=== PATIENT | male | born 1985 | race Two or more races ===

== ENCOUNTER 2020-02-20 23:53 | Emergency (ER) | payer MEDICAID ==
[~2020-02-20] VITALS: Ht 182.9 cm; Wt 77.1 kg
--- NOTE | 2020-02-20 23:58 | NUR ---
PT AAOX4, AMBULATORY WITH STEADY GAIT. BIBMOTHER C/O HEADACHE. PER MOTHER THE PT IS NOT TAKING PRESCRIBED MEDS. PLACED ON MONITOR AND PULSE OX. VSS. NO ACUTE DISTRESS NOTED. WILL CONTINUE TO MONITOR.
[2020-02-20 23:59] VITALS: BP 127/79
[2020-02-21] MEDS ORDERED: OLANZAPINE 5 MG TABLET PO ONE
[2020-02-21 00:06] LABS: BASOPHILS # (AUTO) 0.1 /CMM (0.0-0.2); BASOPHILS % (AUTO) 0.7 % (0.0-2.0); EOSINOPHILS % (AUTO) 0.7 % (0.0-6.0); HEMATOCRIT 46 % (39-51); HEMOGLOBIN 15.5 g/dL (13.5-17.5); MEAN CORPUSCULAR HGB CONC 34 g/dl (31.0-36.0); MEAN CORPUSCULAR VOLUME 91 fL (80-96); MONOCYTES # (AUTO) 0.7 /CMM (0.1-1.30); NEUTROPHILS # (AUTO) 7.1 /CMM (1.8-8.9); NEUTROPHILS % (AUTO) 71.6 % (43.0-81.0); PLATELET COUNT (AUTO) 313 /CMM (150-450); RED BLOOD CELL COUNT(AUTO) 5.06 MIL/uL (4.5-6.0)
[2020-02-21] MEDS ORDERED: OLANZAPINE 5 MG TABLET ONE (00:06)
--- NOTE | 2020-02-21 00:07 | NUR ---
PT REFUSED MD SHIKHA AWARE
[2020-02-21 00:17] LABS: CALCIUM, SERUM 8.9 mg/dL (8.5-10.1); CARBON DIOXIDE 26 mmol/L (21-32); CHLORIDE 103 mmol/L (98-107); GLUCOSE 107 mg/dL (74-106); POTASSIUM 4.1 mmol/L (3.5-5.1); SODIUM SERUM 140 mmol/L (136-145); UREA NITROGEN, BLOOD 15 mg/dL (7-18)
--- NOTE | 2020-02-21 00:21 | NUR ---
REMIGIO (MOTHER) CONTACT INFORMATION: [phone]
[2020-02-21 00:22] LABS: ALANINE AMINOTRANSFERASE 39 U/L (12-78); ALCOHOL, BLOOD < 3 mg/dL (0-0); ALKALINE PHOSPHATASE 75 U/L (46-116); ASPARTATE AMINOTRANSFERASE 19 U/L (15-37); BILIRUBIN,DIRECT 0.1 mg/dL (0.0-0.2); BILIRUBIN,TOTAL 0.5 mg/dL (0.2-1.0); TOTAL PROTEIN, SERUM 7.8 g/dL (6.4-8.2)
[2020-02-21 00:23] LABS: APPEARANCE,URINE Clear (CLEAR); BILIRUBIN,URINE SMALL (NEGATIVE); BLOOD, URINE Negative Ery/uL (NEGATIVE); COLOR,URINE Yellow (YELLOW); KETONES,URINE 15 (NEGATIVE); LEUKOCYTE ESTERASE ,URINE Negative (NEGATIVE); NITRITE, URINE Negative (NEGATIVE); PH,URINE 5.5 (5.0-8.0); PROTEIN,URINE Negative (NEGATIVE); UGLUCOSE Negative (NEGATIVE); UROBILINOGEN,URINE 0.2 EU/dL (0.2)
[2020-02-21 00:23] LABS: ACETAMINOPHEN 0 ug/ml (10-30); SALICYLATE 1.8 mg/dL (2.8-20.0)
--- NOTE | 2020-02-21 00:50 | NUR ---
PT ELOPED FROM FACILITY. ER AWARE
== END 2020-02-21 00:53 | disposition left against medical advice (07) ==
LOC: ER 23:53
DX: R53.1 Weakness (principal)
CPT/HCPCS: 36415; 80048; 80076; 80305; 80307; 80329; 81001; 85025; 99283; G0480; 81000-TC

== ENCOUNTER 2020-02-21 12:41 | Emergency (ER) | payer MEDICAID ==
[~2020-02-21] VITALS: Ht 182.9 cm; Wt 69.9 kg
[2020-02-21] MEDS ORDERED: OLANZAPINE 10 MG VIAL IM ONE ×2 (13:10→13:30)
[2020-02-21] MEDS ORDERED: LORAZEPAM INJ 2 MG/ML VIAL ONE (13:12)
--- NOTE | 2020-02-21 13:23 | NUR ---
Pt medicated as ordered. Labratory at bedside for blood draw
[2020-02-21 13:30] LABS: BASOPHILS # (AUTO) 0.1 /CMM (0.0-0.2); BASOPHILS % (AUTO) 0.4 % (0.0-2.0); EOSINOPHILS % (AUTO) 0.1 % (0.0-6.0); HEMATOCRIT 43 % (39-51); HEMOGLOBIN 14.5 g/dL (13.5-17.5); LYMPHOCYTES # (AUTO) 1.1 /CMM (0.8-4.8); MEAN CORPUSCULAR HGB CONC 34 g/dl (31.0-36.0); MEAN CORPUSCULAR VOLUME 90 fL (80-96); MONOCYTES # (AUTO) 1.2 /CMM (0.1-1.30); MONOCYTES % (AUTO) 6.7 % (2.0-12.0); NEUTROPHILS # (AUTO) 15.9 /CMM (1.8-8.9); NEUTROPHILS % (AUTO) 86.8 % (43.0-81.0); PLATELET COUNT (AUTO) 298 /CMM (150-450); RED BLOOD CELL COUNT(AUTO) 4.78 MIL/uL (4.5-6.0); WHITE BLOOD COUNT (AUTO) 18.4 K/uL (4.3-11.0)
[2020-02-21] MEDS ORDERED: LORAZEPAM INJ 2 MG/ML VIAL IVP ONE (13:30)
[2020-02-21 14:06] LABS: CREATININE 1.2 mg/dL (0.6-1.3); POTASSIUM 3.8 mmol/L (3.5-5.1)
[2020-02-21 14:12] LABS: ALBUMIN 3.9 g/dL (3.4-5.0); BILIRUBIN,DIRECT 0.2 mg/dL (0.0-0.2); BILIRUBIN,TOTAL 0.8 mg/dL (0.2-1.0); TOTAL PROTEIN, SERUM 7.3 g/dL (6.4-8.2)
[2020-02-21] MEDS ORDERED: LIDOCAINE 1%-EPI 1:100,000 20 ML VIAL ONE (14:28)
--- NOTE | 2020-02-21 18:21 | NUR ---
CALLED [facility] ETA 1 HOUR
[2020-02-21 18:55] LABS: APPEARANCE,URINE Clear (CLEAR); BILIRUBIN,URINE Negative (NEGATIVE); BLOOD, URINE Negative Ery/uL (NEGATIVE); COLOR,URINE Yellow (YELLOW); KETONES,URINE 40 (NEGATIVE); LEUKOCYTE ESTERASE ,URINE Negative (NEGATIVE); NITRITE, URINE Negative (NEGATIVE); PROTEIN,URINE Negative (NEGATIVE); UGLUCOSE Negative (NEGATIVE); UROBILINOGEN,URINE 0.2 EU/dL (0.2)
[2020-02-21 19:26] LABS: BACTERIA,URINE Few /HPF (None Seen); RBC,URINE 0-2 /HPF (0-2); SQUAMOUS EPITHELIAL CELL,UR Few /HPF (None Seen); WBC,URINE 0-2 /HPF (0-3)
[2020-02-21] MEDS ORDERED: KETAMINE HCL(200MG/20ML) 10 MG/ML VIAL IM ONE (20:00)
[2020-02-21] MEDS ORDERED: KETAMINE HCL (500MG/10ML) 50 MG/ML VIAL ONE (20:00)
[2020-02-21] MEDS ORDERED: ACETAMINOPHEN 325 MG TABLET ONE (23:42)
--- NOTE | 2020-02-21 23:42 | NUR ---
PT C/O HEADACHE, AWARE
[2020-02-22] MEDS ORDERED: ACETAMINOPHEN 325 MG TABLET PO ONE
--- NOTE | 2020-02-22 00:24 | NUR ---
PT AWAKE. AAOX4, CALM AND COOPERATIVE. DENIES SI OR HI AT THIS TIME. VITAL SIGNS STABLE. WILL CONTINUE TO MONITOR
[2020-02-22] MEDS ORDERED: OLANZAPINE 10 MG VIAL IM ONE (02:28)
[2020-02-22] MEDS ORDERED: LORAZEPAM INJ 2 MG/ML VIAL ONE (02:28)
--- NOTE | 2020-02-22 04:58 | NUR ---
PT RESTING COMFORTABLY IN BED. VITAL SIGNS STABLE. NO ACUTE DISTRESS NOTED AT THIS TIME. WILL CONTINUE TO MONTIOR
--- NOTE | 2020-02-22 06:03 | NUR ---
SPOKE WITH LALITHA DIEZ FOR EVALUATION, EN ROUTE TO HOSPITAL
--- NOTE | 2020-02-22 07:05 | NUR ---
LALITHA DIEZ AT BEDSIDE FOR EVALUATION
--- NOTE | 2020-02-22 07:52 | NUR ---
PT IS MEDICALLY AND PSYCH CLEARED. DENIES SI/HI. WAS PROVIDED W/ MEAL TRAY. AMBULATORY W/ STEADY GAIT. VERBALLY DISCHARGE BY MD CHURCH.
[2020-02-22 08:17] VITALS: BP 125/77
== END 2020-02-22 07:52 | disposition home or self-care (01) ==
LOC: ER 12:48
DX: F06.2 Psychotic disorder with delusions due to known physiological condition (principal); R45.1 Restlessness and agitation; F20.9 Schizophrenia, unspecified
CPT/HCPCS: 36415; 71045; 80048; 80076; 80305; 80307; 80329; 81001; 85025; 96372 ×2; 96374; 99285; G0480; J2060 ×2; J3490 ×4; 81000-TC

== ENCOUNTER 2021-07-02 21:30 | Emergency (ER) | payer MEDICAID ==
[~2021-07-02] VITALS: Ht 170.2 cm; Wt 72.6 kg
--- NOTE | 2021-07-02 21:30 | NUR ---
[id number] WITH [employer] FROM HOME FOR AGGRESSIVE BEHAVIOR TOWARDS FAMILY, PT ON 5150 BY [employer]. PT TO BED 14, 1:1 SITTER AT BEDSIDE. PT NOTED WITH BIZARRE BEHAVIOR, NOT ANSWERING QUESTIONS APPROPRIETLY, PT PLACED ON MONITOR. NOT IN ACUTE DISTRESS, NO SOB/CP NOTED. PENDING ER PROVIDER TERESITA
[2021-07-02] MEDS ORDERED: OLANZAPINE 10 MG VIAL IM ONE ×2 (22:24→22:30)
[2021-07-02 22:55] LABS: BASOPHILS # (AUTO) 0.1 K/uL (0.0-0.2); BASOPHILS % (AUTO) 0.5 % (0.0-2.0); EOSINOPHILS % (AUTO) 0.3 % (0.0-6.0); HEMATOCRIT 47 % (39-51); HEMOGLOBIN 15.4 g/dL (13.5-17.5); LYMPHOCYTES # (AUTO) 1.8 K/uL (0.8-4.8); LYMPHOCYTES % (AUTO) 11.3 % (20.0-44.0); MEAN CORPUSCULAR HGB CONC 33 g/dl (31.0-36.0); MEAN CORPUSCULAR VOLUME 92 fL (80-96); MONOCYTES # (AUTO) 1.1 K/uL (0.1-1.30); NEUTROPHILS # (AUTO) 13.1 K/uL (1.8-8.9); NEUTROPHILS % (AUTO) 80.9 % (43.0-81.0); PLATELET COUNT (AUTO) 249 K/uL (150-450); RED BLOOD CELL COUNT(AUTO) 5.06 MIL/uL (4.5-6.0); WHITE BLOOD COUNT (AUTO) 16.2 K/uL (4.3-11.0)
[2021-07-02 23:04] LABS: CALCIUM, SERUM 9.1 mg/dL (8.5-10.1); CARBON DIOXIDE 25 mmol/L (21-32); CHLORIDE 104 mmol/L (98-107); CREATININE 1.2 mg/dL (0.6-1.3); GLUCOSE 100 mg/dL (74-106); POTASSIUM 3.4 mmol/L (3.5-5.1); SODIUM SERUM 142 mmol/L (136-145); UREA NITROGEN, BLOOD 8 mg/dL (7-18)
[2021-07-02 23:09] LABS: ALANINE AMINOTRANSFERASE 65 U/L (12-78); ALBUMIN 4.2 g/dL (3.4-5.0); ALCOHOL, BLOOD < 3 mg/dL (0-0); ALKALINE PHOSPHATASE 70 U/L (46-116); ASPARTATE AMINOTRANSFERASE 48 U/L (15-37); BILIRUBIN,DIRECT 0.3 mg/dL (0.0-0.2); BILIRUBIN,TOTAL 1.1 mg/dL (0.2-1.0); TOTAL PROTEIN, SERUM 7.8 g/dL (6.4-8.2)
[2021-07-02 23:10] LABS: ACETAMINOPHEN < 2 ug/ml (10-30)
[2021-07-03] MEDS ORDERED: LIDOCAINE 2% JEL UROJET 10 ML MM ONE (01:02)
--- NOTE | 2021-07-03 02:00 | NUR ---
URINE COLLECTED AND SENT TO LAB
[2021-07-03 02:39] LABS: BILIRUBIN,URINE MODERATE (NEGATIVE); COLOR,URINE DARK YELLOW (YELLOW); LEUKOCYTE ESTERASE ,URINE Negative (NEGATIVE); NITRITE, URINE Negative (NEGATIVE); PROTEIN,URINE 30 mg/dl (NEGATIVE); UGLUCOSE Negative (NEGATIVE)
--- NOTE | 2021-07-03 06:45 | NUR ---
[facility] CRISIS TEAM IN [facility]
[2021-07-03] MEDS ORDERED: HALOPERIDOL LACTATE INJ 5 MG/ML VIAL ONE (07:24)
[2021-07-03] MEDS ORDERED: HALOPERIDOL LACTATE INJ 5 MG/ML VIAL IM ONE (07:30)
--- NOTE | 2021-07-03 11:41 | NUR ---
patient accepted at [facility] under Dr. Torres, south unit bed 142-B, number for report [phone].
[2021-07-03 11:43] VITALS: BP 138/77
[2021-07-03 13:09] LABS: BASOPHILS % (AUTO) 0.4 % (0.0-2.0); EOSINOPHILS % (AUTO) 0.1 % (0.0-6.0); HEMATOCRIT 42 % (39-51); HEMOGLOBIN 14.2 g/dL (13.5-17.5); LYMPHOCYTES # (AUTO) 0.9 K/uL (0.8-4.8); LYMPHOCYTES % (AUTO) 7.9 % (20.0-44.0); MEAN CORPUSCULAR HGB CONC 34 g/dl (31.0-36.0); MEAN CORPUSCULAR VOLUME 92 fL (80-96); MONOCYTES # (AUTO) 0.9 K/uL (0.1-1.30); MONOCYTES % (AUTO) 7.3 % (2.0-12.0); NEUTROPHILS # (AUTO) 10.1 K/uL (1.8-8.9); NEUTROPHILS % (AUTO) 84.3 % (43.0-81.0); PLATELET COUNT (AUTO) 206 K/uL (150-450); RED BLOOD CELL COUNT(AUTO) 4.61 MIL/uL (4.5-6.0); WHITE BLOOD COUNT (AUTO) 11.9 K/uL (4.3-11.0)
--- NOTE | 2021-07-03 14:04 | NUR ---
CALLED [facility] FOR S AMBULANCE ETA 1503
--- NOTE | 2021-07-03 14:10 | NUR ---
report given to Dione HARRIS for rebecca.
[2021-07-03] MEDS ORDERED: ACETAMINOPHEN ES 500 MG TABLET ONE (14:23)
[2021-07-03] MEDS ORDERED: ACETAMINOPHEN ES 500 MG TABLET PO ONE (14:30)
--- NOTE | 2021-07-03 14:56 | NUR ---
TRANSPORTED TO [facility] IN STABLE CONDITION.
== END 2021-07-03 14:58 ==
LOC: ER 21:33
DX: F29 Unspecified psychosis not due to a substance or known physiological condition (principal); F41.9 Anxiety disorder, unspecified; F17.210 Nicotine dependence, cigarettes, uncomplicated; Z20.822 Contact with and (suspected) exposure to COVID-19; F20.9 Schizophrenia, unspecified; Z91.14 Patient's other noncompliance with medication regimen
CPT/HCPCS: 36415 ×2; 80048; 80076; 80143; 80307; 80320; 81003; 85025 ×2; 87426; 96372 ×2; 99285; 99406; C9803 ×2; J1630; J3490 ×2; U0003; G0480